=== PATIENT | female | born 1955 | race Caucasian/White ===

== ENCOUNTER 2020-02-24 14:49 | Outpatient (CLI) | payer OTHER ==
[2020-02-25 12:32] LABS: SARS-CoV-2 MS2 Positive; SARS-CoV-2 N Gene Negative; SARS-CoV-2 S Gene Negative; SARS-CoV-2 by NAA Not Detected (NotDetected); SARS-CoV-2 orf1ab Negative
== END 2020-02-24 14:50 | disposition home or self-care (01) ==
LOC: LABBT 14:49
PROVIDERS: ATTEND Internal Medicine Gastroenterology
DX: K92.2 Gastrointestinal hemorrhage, unspecified (principal); R11.0 Nausea; Z20.828 Contact with and (suspected) exposure to other viral communicable diseases
CPT/HCPCS: 87635; U0003

== ENCOUNTER 2020-02-28 10:40 | Day surgery (SDC) | payer OTHER ==
[2020-02-24 15:02] VITALS: BMI 22.3
[~2020-02-28 10:40] MED LIST: PROPOFOL 200 MG/20 ML VIAL ONE
--- NOTE | 2020-02-29 07:50 | OP ---
DATE OF PROCEDURE: 02/28/2020 OPERATIVE PROCEDURE: Colonoscopy. PREOPERATIVE DIAGNOSIS: A 64-year-old female with melena, occult GI bleeding with past history of blood in stool. The patient is undergoing colonoscopy. POSTOPERATIVE DIAGNOSES: 1. Markedly redundant, tortuous colon. 2. Large hemorrhoids. 3. Otherwise, exam is normal. DESCRIPTION OF PROCEDURE: The patient was placed on her left lateral position and was given sedation by Anesthesia Department. A rectal exam was done before scope was advanced into the rectum. No lesions felt on rectal exam. A Pentax video colonoscope was introduced into the rectum and advanced all the way into the cecum. The patient had a very tortuous, redundant colon. Abdominal compression was used to advance the scope all the way into the cecum. The appendicular opening, ileocecal valve, and cecum, no lesion seen. The mucosa appeared normal throughout the colon with normal vascular pattern. The appendicular opening, ileocecal valve, and cecum, no lesion seen. Withdrawal of scope in the cecum to ascending colon, hepatic flexure, no lesion seen. The transverse colon, splenic flexure, descending colon, sigmoid colon, no lesion seen. Retroflexion of scope in the rectum showed large hemorrhoids. DISCHARGE PLANNING: This is a 64-year-old female with chronic hepatitis C, status post treatment. The patient was seen in the office because of melena, anemia, and also occult GI bleeding. The patient underwent EGD and was found to have gastritis. The colonoscopy showed no pathology except for hemorrhoids. DISCHARGE RECOMMENDATION: The patient was advised to get back on her blood thinner and also start back on the iron supplement. The patient will come back to me in 2 weeks' time for a followup visit. Job ID: [id number]
--- NOTE | 2020-02-29 07:52 | OP ---
DATE OF PROCEDURE: 02/28/2020 OPERATIVE PROCEDURE: Esophagogastroduodenoscopy with biopsy. PREOPERATIVE DIAGNOSIS: A 64-year-old female with melena, chronic reflux symptoms, anemia. The patient is undergoing EGD. POSTOPERATIVE DIAGNOSES: 1. Normal esophageal mucosa. 2. 2 cm hiatal hernia. 3. Normal gastric, fundus, and body. 4. Antral gastritis. DESCRIPTION OF PROCEDURE: The patient was placed on her left lateral position and was given sedation by Anesthesia Department. A Pentax video gastroscope under direct vision passed down the oropharynx, past the GE junction into the stomach and subsequently into the descending duodenum. The esophageal mucosa appeared normal throughout. The GE junction, no lesion seen. The patient had a hiatal hernia measuring approximately about 2 cm. The fundus, cardia, gastric body, no lesion seen. The gastric antrum showed edematous and erythematous mucosa. The gastric incisura, no pathology seen. The duodenal bulb, descending duodenum, no pathology seen. Biopsies obtained of the gastric antrum and gastric body. The stomach decompressed and the scope removed. Job ID: [id number]
== END 2020-02-28 14:01 | disposition home or self-care (01) ==
LOC: SDC 10:40
PROVIDERS: ATTEND Internal Medicine Gastroenterology
PROC: 0DJD8ZZ Inspection of Lower Intestinal Tract, Via Natural or Artificial Opening Endoscopic (ICD-10-PCS; principal; 2020-02-28)
PROC: 0DB68ZX Excision of Stomach, Via Natural or Artificial Opening Endoscopic, Diagnostic (ICD-10-PCS; principal; 2020-02-28)
DX: K64.8 Other hemorrhoids (principal); K29.60 Other gastritis without bleeding; K44.9 Diaphragmatic hernia without obstruction or gangrene; D64.9 Anemia, unspecified; Q43.8 Other specified congenital malformations of intestine
CPT/HCPCS: 88305; 88312; J2704